=== PATIENT | male | born 1975 ===

== ENCOUNTER 2018-07-23 07:07 | Day surgery (SDC) | payer OTHER ==
[2018-07-23 07:43] VITALS: BMI 26.5
[2018-07-23 07:49] VITALS: O2SAT 100
--- NOTE | 2018-07-23 09:00 | CP.SDSHP ---
Same Day Surgery H & P - History Proposed Procedure: EGD Pre-Op Diagnosis: chronic heartburn - Previous Medical/Surgical History Misc: Hepatitis - Allergies Allergies: Allergies No Known Allergies Allergy (Verified 07/23/18 07:40) - Physical Exam Vital Signs: Vital Signs 07/23/18 07:43 Temperature 97.5 F L Pulse Rate 71 Respiratory 19 Rate Blood Pressure 131/60 O2 Sat by Pulse 100 Oximetry Mental Status: Alert & Oriented x3 Neuro: WNL Heart: WNL Lungs: WNL GI: WNL - Impression Impression: chronic heartburn Pt. Evaluated Today:Candidate for Anesthesia & Procedure: Yes - Date & Time Date: 07/23/18 Time: 09:00 Short Stay Discharge - Short Stay Discharge Admitting Diagnosis/Reason for Visit: HEARTBURN / EPIGASTRIC PAIN Disposition: HOME/ ROUTINE
[2018-07-23] MEDS ORDERED: Propofol 10 mg/ml Inj (20 ML) ONE (09:02)
[2018-07-23] MEDS ORDERED: Lactated Ringer's 1,000 ML IV ONE (09:05)
[2018-07-23] MEDS ORDERED: Pantoprazole 40 mg EC Tab PO ONE (09:15)
[2018-07-23 10:48] VITALS: BP 126/85; PULSE 72; RESP 13; TEMP 98.2
== END 2018-07-23 10:35 | disposition home or self-care (01) ==
LOC: C.ENDO 07:07
PROVIDERS: ATTEND Internal Medicine Gastroenterology
DX: K20.9 Esophagitis, unspecified (principal); R12 Heartburn; R10.13 Epigastric pain; K29.70 Gastritis, unspecified, without bleeding
CPT/HCPCS: 43239; 88305; 88312; 88313; 88342; J2001; J2704; J7120